=== PATIENT | female | born 1950 | race Caucasian/White ===

== ENCOUNTER → 2017-12-11 | Outpatient (CLI) | payer MEDICARE ==
--- NOTE | 2017-12-11 15:29 | RAD ---
DATE: 12/11/2017 EXAM: MAMMO TITA SCREENING BILATERAL HISTORY: Routine screening COMPARISON: 10/09/2013 This study was interpreted with the benefit of Computerized Aided Detection (CAD). The breast parenchyma is heterogeneously dense, which could reduce sensitivity of mammography. Breast parenchyma level C. FINDINGS: 2-D and 3-D tomosynthesis imaging was performed in CC and MLO projections. No new or enlarging breast densities are seen. Numerous bilateral microcalcifications are again noted with the overall pattern suggesting a benign etiology. IMPRESSION: There is no mammographic evidence of malignancy in either breast. BI-RADS CATEGORY: 2 BENIGN FINDING(S) RECOMMENDED FOLLOW-UP: 12M 12 MONTH FOLLOW-UP PQRS compliance statement: Patient information was entered into a reminder system with a target due date for the next mammogram. Mammography is a sensitive method for finding small breast cancers, but it does not detect them all and is not a substitute for careful clinical examination. A negative mammogram does not negate a clinically suspicious finding and should not result in delay in biopsying a clinically suspicious abnormality. "Our facility is accredited by the [employer] Mammography Program."
== END | disposition home or self-care (01) ==
LOC: MAMMO 13:09
PROVIDERS: ATTEND Family Medicine
DX: Z12.31 Encounter for screening mammogram for malignant neoplasm of breast (principal)
CPT/HCPCS: 77063; 77067

== ENCOUNTER → 2019-02-09 | Outpatient (CLI) | payer OTHER, MEDICARE ==
--- NOTE | 2019-02-11 09:44 | RAD ---
DATE: 02/09/2019 8:30 AM EXAM: MAMMO TITA SCREENING BILATERAL HISTORY: routine screening evaluation. COMPARISON: 12/11/2017, 10/09/2013 Bilateral CC and MLO views of the breasts were performed. Bilateral breast tomosynthesis was performed in CC and MLO projections. This study was interpreted with the benefit of Computerized Aided Detection (CAD). Breast Density: The breast parenchyma shows scattered fibroglandular densities. Breast parenchyma level B. FINDINGS: Benign calcifications are present. The parenchymal pattern appears stable. No suspicious masses, microcalcifications or architectural distortion is present to suggest malignancy in either breast. The visualized axillae are unremarkable. IMPRESSION: No mammographic evidence of malignancy. BI-RADS CATEGORY: 2 BENIGN FINDING(S) RECOMMENDED FOLLOW-UP: 12M 12 MONTH FOLLOW-UP Annual screening mammography is recommended, unless clinically indicated sooner based on symptoms or change in physical exam. PQRS compliance statement: Patient information was entered into a reminder system with a target due date 02/11/2020 for the next mammogram. Mammography is a sensitive method for finding small breast cancers, but it does not detect them all and is not a substitute for careful clinical examination. A negative mammogram does not negate a clinically suspicious finding and should not result in delay in biopsying a clinically suspicious abnormality. "Our facility is accredited by the [employer] Mammography Program." OWEND
== END | disposition home or self-care (01) ==
LOC: MAMMO 08:22
PROVIDERS: ATTEND Physician Assistant
DX: Z12.31 Encounter for screening mammogram for malignant neoplasm of breast (principal); N64.89 Other specified disorders of breast
CPT/HCPCS: 77063; 77067

== ENCOUNTER 2021-02-28 15:09 | Observation (INO) | payer MEDICARE ==
[~2021-02-28] VITALS: Ht 162.6 cm; Wt 76.8 kg
--- NOTE | 2021-02-28 16:04 | RAD ---
EXAM: Chest, single view. HISTORY: Syncope. COMPARISON: None. FINDINGS: A frontal view of the chest is obtained. There is no infiltrate, pleural effusion or pneumo thorax. The heart is normal in size. There are calcified granulomas. IMPRESSION: No acute pulmonary finding. Electronically signed by: Katharine Bhatt MD (02/28/2021 4:02 PM) [id number]
--- NOTE | 2021-02-28 16:06 | RAD ---
EXAM: Head CT without contrast. HISTORY: Seizure activity. TECHNIQUE: Computed tomographic images of the head were obtained without contrast. *One or more of the following individualized dose reduction techniques were utilized for this examina tion: 1. Automated exposure control. 2. Adjustment of the mA and/or kV according to patient size. 3. Use of iterative reconstruction technique. COMPARISON: None. FINDINGS: There is no acute or subacute extra-axial or intraparenchymal hemorrhage. There is no mass effect or midline shift. There is no hydrocephalus. There are areas of decreased attenuation within the cerebral white matter, nonspecific and likely rel ated to chronic small vessel disease. The visualized portions of the orbits, paranasal sinuses and mastoid air cells are unremarkable. No s uspicious calvarial lesion is seen. IMPRESSION: No acute intracranial findings. Electronically signed by: Katharine Bhatt MD (02/28/2021 4:04 PM) [id number]
[2021-02-28 16:26] VITALS: BP 148/83
[2021-02-28 16:27] VITALS: BP_SYST 147; BP_SYST 149; BP_DIAS 81; BP_DIAS 82
[2021-02-28] MEDS ORDERED: MAG HYDROX/AL HYDROX/SIMETH 30 ML ORAL.SUSP PO PRN (16:30)
[2021-02-28] MEDS ORDERED: ZOLPIDEM 5 MG TABLET. PO PRN (16:30)
[2021-02-28] MEDS ORDERED: ACETAMINOPHEN 500 MG TABLET PO PRN (16:30)
[2021-02-28] MEDS ORDERED: LEVO50TA5 PO (16:36)
[2021-02-28] MEDS ORDERED: CETI10TA16 PO (16:36)
[2021-02-28] MEDS ORDERED: CHOL100013 PO (16:36)
[2021-02-28] MEDS ORDERED: LISI1TAB37 PO (16:36)
[2021-02-28] MEDS ORDERED: METO-239 PO (16:36)
[2021-02-28] MEDS ORDERED: ASPI81TA59 PO (16:36)
[2021-02-28] MEDS ORDERED: FLUT16SP21 NS (16:36)
[2021-02-28] MEDS ORDERED: FENO54TA (16:36)
[2021-02-28 17:14] LABS: BACTERIA,URINE 0 /HPF (0-FEW); BILIRUBIN,URINE NEG (NEG); CLARITY,URINE CLEAR; COLOR,URINE YELLOW; GLUCOSE,URINE NEG (NEG); NITRITE,URINE NEG (NEG); SQUAMOUS EPITHELIAL CELL,UR FEW /LPF; UROBILINOGEN,URINE 0.2 mg/dL (0.2 mg/dL)
[2021-02-28 17:43] LABS: BASO % 0 % (0-3); EOS # 0.1 x10^3/uL (0.0-0.7); EOS % 2 % (0-3); HEMATOCRIT 39.9 % (36.0-47.0); HEMOGLOBIN 13.3 g/dL (12.0-15.5); LYMPH # 1.9 x10^3/uL (1.0-4.8); LYMPH % 35 % (24-48); MEAN CORPUSCULAR HEMOGLOBIN 31 pg (25-35); MEAN CORPUSCULAR HGB CONC 33 g/dL (31-37); MEAN CORPUSCULAR VOLUME 94 fL (79-100); MONO # 0.6 x10^3/uL (0.0-1.1); MONO % 12 % (0-9); NEUT # 2.8 x10^3uL (1.8-7.7); NEUT % 51 % (31-73); PLATELET COUNT 215 x10^3/uL (140-400); RED BLOOD COUNT 4.26 x10^6/uL (3.50-5.40); RED CELL DISTRIBUTION WIDTH 13.5 % (11.5-14.5); WHITE BLOOD COUNT 5.4 x10^3/uL (4.0-11.0)
[2021-02-28 17:56] LABS: ALBUMIN 3.8 g/dL (3.4-5.0); ALBUMIN/GLOBULIN RATIO 1.2 (1.0-1.7); CREATININE 1.1 mg/dL (0.6-1.0); GFR 49.1; POTASSIUM 3.9 mmol/L (3.5-5.1); TOTAL BILIRUBIN 0.2 mg/dL (0.2-1.0)
[2021-02-28] MEDS ORDERED: SCOPOLAMINE 1.5MG PATCH. TD SCH (18:30)
[2021-02-28 19:17] VITALS: BP 159/88
--- NOTE | 2021-02-28 19:48 | EKG ---
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
[2021-02-28] MEDS ORDERED: SCOPOLAMINE 1.5MG PATCH. TD PRN (20:15)
[2021-02-28 23:48] VITALS: BP 136/72
[2021-03-01 05:31] VITALS: BP 131/73
[2021-03-01] MEDS ORDERED: LEVOTHYROXINE 50 MCG TABLET PO SCH (06:00)
[2021-03-01] MEDS ORDERED: ASPIRIN CHEWABLE 81 MG TABLET. PO SCH (09:00)
[2021-03-01] MEDS ORDERED: hydroCHLOROthiazide 12.5 MG CAPSULE PO SCH (09:00)
[2021-03-01] MEDS ORDERED: LISINOPRIL 20 MG TABLET PO SCH (09:00)
[2021-03-01] MEDS ORDERED: FLUTICASONE 50MCG/NASAL SPRAY 16GM BOTTLE. NS SCH (09:00)
[2021-03-01] MEDS ORDERED: METOPROLOL SUCC 24HR ER 25 MG TAB.ER.24H. PO SCH (09:00)
[2021-03-01] MEDS ORDERED: FENOFIBRATE NANOCRYSTALLIZED 48 MG TABLET PO SCH (09:00)
[2021-03-01] MEDS ORDERED: CHOLECALCIFEROL (VITAMIN D3) 1,000 UNIT TABLET PO SCH (09:00)
--- NOTE | 2021-03-01 09:00 | PDOC2 ---
CARDIAC CONSULT DATE OF CONSULT DOS: DATE: 03/01/21 TIME: 08:56 REASON FOR CONSULT Reason for Consult palpitations, syncope REFERRING PHYSICIAN Referring Physician Dr. Erazo SOURCE Source: Chart review, Patient HPI History of Present Illness This is a 70 yo female who presented secondary to lightheadedness. Patient reports having episodes of feeling lightheadedness. Associated with hot flash. Feels as if she could pass out. Patient reports experiencing a couple of these episodes over the last couple of days. Called PCP who referred her to the ED for further evaluation and treatment. She denies any chest pain, palpitations, shortness of breath, or nausea/vomiting. Does reports experiencing some diaphoresis at HS. No recent fevers or illness. Reports h/o mitral valve prolapse approximately 20 years ago. Was seen by spud sorter in [place]. Has not established care since moving back from [place] many years ago. Also reports frequently accumulation of fluid in her right ear, which is present currently. Reports she did not expected to be admitted to the hospital and would like to go home as she feels well. PAST MEDICAL HISTORY Cardiovascular: HTN, Other (mitral valve prolapse ) Musculoskeletal: Osteoarthritis PAST SURGICAL HISTORY Past Surgical History: Appendectomy, Hysterectomy, Tonsillectomy, Other (sinus surgery ) FAMILY HISTORY Family History: Diabetes SOCIAL HISTORY Smoke: No ALCOHOL: none Drugs: None Lives: Alone CURRENT MEDICATIONS Current Medications Current Medications Zolpidem Tartrate (Ambien) 5 mg PRN QHS PRN PO INSOMNIA, MAY REPEAT IN 1HR; Start 02/28/21 at 16:30 Acetaminophen (Tylenol) 500 mg PRN Q6HRS PRN PO MILD PAIN / TEMP > 100.3'F; Start 02/28/21 at 16:30 Al Hydroxide/Mg Hydroxide (Mylanta Plus Xs) 30 ml PRN Q2HR PRN PO DYSPEPSIA; Start 02/28/21 at 16:30 Aspirin (Aspirin Chewable) 81 mg DAILY PO Last administered on 03/01/21at 08:40; Start 03/01/21 at 09:00 Fluticasone Propionate (Flonase) 2 spray DAILY NS Last administered on 03/01/21at 08:37; Start 03/01/21 at 09:00 Levothyroxine Sodium (Synthroid) 50 mcg DAILY06 PO Last administered on 02/16 12/07at 05:17; Start 03/01/21 at 06:00 Metoprolol Succinate (Toprol Xl) 25 mg DAILY PO Last administered on 03/01/21at 08:40; Start 03/01/21 at 09:00 Vitamin D (Vitamin D3) 1,000 unit DAILY PO Last administered on 03/01/21at 08:40; Start 03/01/21 at 09:00 Fenofibrate (Tricor) 48 mg DAILY PO Last administered on 03/01/21at 08:40; Start 03/01/21 at 09:00 Lisinopril (Prinivil) 20 mg DAILY PO Last administered on 03/01/21at 08:39; Start 03/01/21 at 09:00 Scopolamine (Transderm-Scop) 1 patch Q3DAYS TD ; Start 02/28/21 at 18:30; Stop 02/28/21 at 20:07; Status DC Hydrochlorothiazide (Microzide) 12.5 mg DAILY PO Last administered on 03/01/21at 08:40; Start 03/01/21 at 09:00 Scopolamine (Transderm-Scop) 1 patch PRN Q72HRS PRN TD MOTION SICKNESS; Start 02/28/21 at 20:15 Active Scripts Active Reported Children's Aspirin (Aspirin) 81 Mg Tab.chew 1 Tab PO DAILY 30 Days Fluticasone Propionate Nasal [place] (Fluticasone Propionate) 16 Gm Comstock.susp 2 Sprays NS DAILY Cetirizine Hcl 10 Mg Tablet 1 Tab PO DAILY Fenofibrate 54 Mg Tablet 54 DAILY Levothyroxine Sodium 50 Mcg Tablet 1 Tab PO DAILY Vitamin D3 (Cholecalciferol (Vitamin D3)) 25 Mcg Capsule 1 Cap PO DAILY Lisinopril-Hctz 20-12.5 Mg Tab (Lisinopril/Hydrochlorothiazide) 1 Each Tablet 1 Tab PO DAILY Metoprolol Succinate ( Xl ) (Metoprolol Succinate) 25 Mg Tab.er.24h 1 Tab PO DAILY ALLERGIES Allergies: Coded Allergies: Sulfa (Sulfonamide Antibiotics) (Verified Allergy, Unknown, 02/28/21) iodine (Verified Allergy, Unknown, 02/28/21) ROS Review of Systems 14 point ROS conducted with pertinent positives noted above in HPI PHYSICAL EXAM General: Alert, Oriented X3, Cooperative, No acute distress HEENT: Atraumatic Lungs: Clear to auscultation Heart: Regular rate Abdomen: Soft, No tenderness Extremities: No edema, Normal pulses Skin: No breakdown Neuro: Normal speech, Sensation intact Psych/Mental Status: Mental status NL, Mood NL MUSCULOSKELETAL: Osteoarthritic changes both hands VITALS Vital Signs Vital Signs Date Time Temp Pulse Resp B/P (MAP) Pulse Ox O2 Delivery O2 Flow Rate FiO2 03/01/21 08:40 70 131/73 03/01/21 05:31 97.7 20 95 Room Air LABS LABS Laboratory Tests Test 02/28/21 16:19 02/28/21 17:24 Urine Collection Type Unknown Urine Color Yellow Urine Clarity Clear Urine pH 7.0 Urine Specific Tennyson 1.025 Urine Protein Neg (NEG-TRACE) Urine Glucose (UA) Neg mg/dL (NEG) Urine Ketones (Stick) Neg mg/dL (NEG) Urine Blood Neg (NEG) Urine Nitrite Neg (NEG) Urine Bilirubin Neg (NEG) Urine Urobilinogen Dipstick 0.2 mg/dL (0.2 mg/dL) Urine Leukocyte Esterase Trace (NEG) Urine RBC 1-2 /HPF (0-2) Urine WBC 5-10 /HPF (0-4) Urine Squamous Epithelial Cells Few /LPF Urine Bacteria 0 /HPF (0-FEW) White Blood Count 5.4 x10^3/uL (4.0-11.0) Red Blood Count 4.26 x10^6/uL (3.50-5.40) Hemoglobin 13.3 g/dL (12.0-15.5) Hematocrit 39.9 % (36.0-47.0) Mean Corpuscular Volume 94 fL (79-100) Mean Corpuscular Hemoglobin 31 pg (25-35) Mean Corpuscular Hemoglobin Concent 33 g/dL (31-37) Red Cell Distribution Width 13.5 % (11.5-14.5) Platelet Count 215 x10^3/uL (140-400) Neutrophils (%) (Auto) 51 % (31-73) Lymphocytes (%) (Auto) 35 % (24-48) Monocytes (%) (Auto) 12 % (0-9) Eosinophils (%) (Auto) 2 % (0-3) Basophils (%) (Auto) 0 % (0-3) Neutrophils # (Auto) 2.8 x10^3uL (1.8-7.7) Lymphocytes # (Auto) 1.9 x10^3/uL (1.0-4.8) Monocytes # (Auto) 0.6 x10^3/uL (0.0-1.1) Eosinophils # (Auto) 0.1 x10^3/uL (0.0-0.7) Basophils # (Auto) 0.0 x10^3/uL (0.0-0.2) Sodium Level 145 mmol/L (136-145) Potassium Level 3.9 mmol/L (3.5-5.1) Chloride Level 108 mmol/L (98-107) Carbon Dioxide Level 28 mmol/L (21-32) Anion Gap 9 (6-14) Blood Urea Nitrogen 20 mg/dL (7-20) Creatinine 1.1 mg/dL (0.6-1.0) Estimated GFR (Cockcroft-Gault) 49.1 BUN/Creatinine Ratio 18 (6-20) Glucose Level 92 mg/dL (70-99) Calcium Level 9.0 mg/dL (8.5-10.1) Total Bilirubin 0.2 mg/dL (0.2-1.0) Aspartate Amino Transf (AST/SGOT) 24 U/L (15-37) Alanine Aminotransferase (ALT/SGPT) 36 U/L (14-59) Alkaline Phosphatase 67 U/L (46-116) Creatine Kinase 267 U/L (26-192) Troponin I Quantitative < 0.017 ng/mL (0-0.055) Total Protein 7.0 g/dL (6.4-8.2) Albumin 3.8 g/dL (3.4-5.0) Albumin/Globulin Ratio 1.2 (1.0-1.7) ASSESSMENT/PLAN Assessment/Plan 1. Lightheadedness; CT head without acute findings. orthos negative 2. Palpitations; no tachyarrhythmias overnight on tele. TSH pending. 3. Hypertension; controlled 4. Sinus bradycardia; lowest 49 overnight. No pauses. Appropriate chronotropic response. EKG shows SB without acute changes 5. H/o mitral valve prolapse Recommendations Will arrange outpatient echo and event monitor to r/o contributing arrhythmias Follow up in our office with Dr. Mendes as scheduled SHAE VALDES APRN Mar 01, 2021 09:00
[2021-03-01] MEDS ORDERED: guaiFENesin/PS-EPHED 600/60MG 1 TAB TAB.ER.12H PO SCH (09:30)
[2021-03-01 10:46] VITALS: BP 126/73
[2021-03-01] MEDS ORDERED: SCOP1PAT11 TD (11:03)
[2021-03-01] MEDS ORDERED: GUAI-112 PO (11:03)
[2021-03-01 14:43] VITALS: BP 133/74
[2021-03-03] MEDS ORDERED: SCOPOLAMINE 1.5MG PATCH. TD SCH (20:15)
--- NOTE | 2021-03-06 22:44 | DS ---
DATE OF DISCHARGE: 03/01/2021 HOSPITAL COURSE: The patient has been complaining of severe lightheadedness associated with hot flash, but the patient has been having difficulty with her balance and marked diaphoresis, and the patient is very unsteady on her feet. The patient has been concerned about the possibility of TIAs or possibility of some other neurological phenomenon. She does have some problems with her ears. The lightheadedness; however, does seem to be significant. She also notes to have some palpitations and her blood pressure seems to be under good control, although she does go down to bradycardia at night. The patient's blood pressures essential hypertension approximately 160/88, respiratory rate 20, pulse in the low 50s, oxygen saturation 97%. The patient's labs: CBC normal. Chemistries showed 145/3.9/21/0.1, GFR 49. CT scan of the head was unremarkable as well as a chest x-ray. Otherwise, the patient made good progress during the rest of her hospitalization. She will be discharged home. Follow up as an outpatient and make further assessment on her as an outpatient. IMPRESSION: Near syncope, lightheadedness, vestibulitis, essential hypertension. Plan as above. ADALGISA/ELDA DR: Wilder TID: [id number]
== END 2021-03-01 16:28 | disposition home or self-care (01) ==
LOC: INTOOBSV 15:09 → 1 SOUTH 15:09
PROVIDERS: ADMIT Family Medicine; ATTEND Family Medicine
DX: R42 Dizziness and giddiness (principal); R55 Syncope and collapse; R00.2 Palpitations; I10 Essential (primary) hypertension; I34.1 Nonrheumatic mitral (valve) prolapse; Z83.3 Family history of diabetes mellitus; Z90.710 Acquired absence of both cervix and uterus; Z90.49 Acquired absence of other specified parts of digestive tract
CPT/HCPCS: 36415; 70450; 71045; 80053; 81001; 82550; 84443; 84484; 85025; 87086; 93005; 97161; 97165; G0378; G0379